=== PATIENT | female | born 1945 | race Two or more races ===

== ENCOUNTER 2017-09-04 11:24 | Emergency (ER) | payer OTHER ==
[~2017-09-04] VITALS: Ht 172.7 cm; Wt 81.2 kg
[~2017-09-04 11:24] MED LIST: AMLO5TAB2; DIPH25CA66 PO; HYDR-4683 PO; INSLANTI SC
[2017-09-04 12:03] LABS: Basophils # (auto) 0.1 uL; Eosinophils # (auto) 0.4 uL; Eosinophils % (auto) 5.7 % (0.0-7.0); Hematocrit 33.6 % (36.0-46.0); Hemoglobin 11.3 g/dL (12.2-16.2); Lymphocytes # (auto) 1.7 uL; Lymphocytes % (auto) 21.5 % (10.0-50.0); Mean Corpuscular Hemoglobin 29.8 pg (28.0-32.0); Mean Corpuscular Hgb Conc. 33.8 g/dL (32.0-36.0); Mean Corpuscular Volume 88.2 fL (80.0-100.0); Monocytes # (auto) 0.7 uL; Monocytes % (auto) 8.6 % (0.0-12.0); Neutrophils # (auto) 4.9 uL; Neutrophils % (auto) 63.2 % (37.0-80.0); Platelet Count (auto) 261 10^3/uL (140-450); Red Blood Cells 3.81 10^6/uL (4.0-5.20); Red Cell Distribution Width 15.3 % (11.8-14.3); White Blood Cell 7.7 10^3/uL (4.4-10.8)
[2017-09-04 12:23] LABS: Albumin 3.9 g/dL (3.4-5.0); Calcium 9.1 mg/dL (8.5-10.1); Potassium 3.9 mmol/L (3.5-5.1)
[2017-09-04 12:38] LABS: BUN/Creatinine Ratio 17.6; Bilirubin, Total 1.1 mg/dL (0.2-1.0); Total Protein 7.5 g/dL (6.4-8.2)
[2017-09-04 12:41] VITALS: BP 126/66
== END 2017-09-04 13:33 | disposition home or self-care (01) ==
LOC: ER 11:26
DX: S09.90XA Unspecified injury of head, initial encounter (principal); R53.1 Weakness; I25.810 Atherosclerosis of coronary artery bypass graft(s) without angina pectoris; E11.9 Type 2 diabetes mellitus without complications; I10 Essential (primary) hypertension; Z88.6 Allergy status to analgesic agent; Z95.1 Presence of aortocoronary bypass graft; Z88.8 Allergy status to other drugs, medicaments and biological substances; Z91.040 Latex allergy status; Z79.899 Other long term (current) drug therapy; Z90.49 Acquired absence of other specified parts of digestive tract; W18.39XA Other fall on same level, initial encounter; Y93.89 Activity, other specified; Y92.89 Other specified places as the place of occurrence of the external cause; Y99.8 Other external cause status
CPT/HCPCS: 36415; 70450; 74176; 80053; 85025; 93005; 94761; 99285; J7030

== ENCOUNTER 2018-01-02 16:20 | Inpatient (IN) | payer OTHER ==
[~2018-01-02] VITALS: Ht 167.6 cm; Wt 78.0 kg
[~2018-01-02 16:20] MED LIST changes: +AMLO5TAB13; -AMLO5TAB2
[2018-01-02] MEDS ORDERED: DEXTROSE 50% SYRINGE 100 ML IV ONE (16:24)
[2018-01-02] MEDS ORDERED: DEXTROSE (50%) 50ML SYRG IV ONE ×2 (17:30→18:00)
[2018-01-02] MEDS: DEXTROSE 10% 1,000 ML IV SCH (17:58)
[2018-01-02] MEDS ORDERED: SODIUM CHLORIDE 0.9% 1,000 ML IVB ONE (19:17)
[2018-01-02 19:37] LABS: Basophils # (auto) 0 uL; Eosinophils # (auto) 0 uL; Lymphocytes # (auto) 1.1 uL; Lymphocytes % (auto) 25.2 % (10.0-50.0); Monocytes # (auto) 0.3 uL; Nucleated Red Blood Cells % 0.1 %; Red Blood Cells 4.32 10^6/uL (4.0-5.20)
[2018-01-02 19:39] LABS: Basophils % (auto) 0.5 % (0.0-2.0); Eosinophils % (auto) 0.7 % (0.0-7.0); Hematocrit 38.9 % (36.0-46.0); Hemoglobin 11.7 g/dL (12.2-16.2); Mean Corpuscular Volume 90.1 fL (80.0-100.0); Monocytes % (auto) 7.7 % (0.0-12.0); Neutrophils # (auto) 2.9 uL; Neutrophils % (auto) 65.9 % (37.0-80.0); Platelet Count (auto) 121 10^3/uL (140-450); Red Cell Distribution Width 17.5 % (11.8-14.3); White Blood Cell 4.4 10^3/uL (4.4-10.8)
[2018-01-02 21:21] LABS: INR 1.18 (0.9-1.15); Partial Thromboplastin Time 34.3 sec (23.78-33.04); Prothrombin Time 12.5 sec (9.27-12.13)
[2018-01-02 21:33] LABS: Alanine Aminotransferase 20 U/L (13-56); Albumin 3.6 g/dL (3.4-5.0); Anion Gap 8 (5-15); Aspartate Aminotransferase 22 U/L (15-37); Blood Urea Nitrogen 23 mg/dL (7-18); Calcium 8.8 mg/dL (8.5-10.1); Carbon Dioxide 20 mmol/L (21-32); Chloride 107 mmol/L (98-107); Glucose 143 mg/dL (74-106); Potassium 4.4 mmol/L (3.5-5.1); Sodium 135 mmol/L (136-145)
[2018-01-02 21:36] LABS: Alkaline Phosphatase 75 U/L (45-117); BUN/Creatinine Ratio 21.1; Bilirubin, Total 0.7 mg/dL (0.2-1.0); GFR African American 63 mL/min; GFR Non-African American 52 mL/min; Total Protein 7.6 g/dL (6.4-8.2)
[2018-01-02] MEDS ORDERED: DEXTROSE (50%) 50ML SYRG IV PRN (22:30)
[2018-01-02] MEDS ORDERED: ONDANSETRON HCL 4 MG/2 ML VIAL IV PRN (22:30)
[2018-01-02] MEDS ORDERED: TEMAZEPAM 15 MG CAP PO PRN (22:30)
[2018-01-02] MEDS ORDERED: ACETAMINOPHEN 325 MG TAB PO ONE (22:45)
[2018-01-02 23:26] VITALS: BP 143/80
[2018-01-02] MEDS: ACCU-CHEK COMFORT CURVE STRIP VI SCH (23:30)
[2018-01-02 23:47] VITALS: BP 143/80
[2018-01-03] MEDS: DEXTROSE 10% 1,000 ML IV SCH (01:36)
[2018-01-03] MEDS ORDERED: HYDR-4683 PO (02:20)
[2018-01-03] MEDS: ACCU-CHEK COMFORT CURVE STRIP VI SCH ×7 (02:30→21:34)
[2018-01-03] MEDS: HYDROcodone-ACET 5/325MG TAB PO PRN ×5 (03:02→21:58)
[2018-01-03 05:18] VITALS: BP 124/63
[2018-01-03] MEDS ORDERED: ACCU-CHEK COMFORT CURVE STRIP VI SCH (06:00)
[2018-01-03] MEDS ORDERED: DEXTROSE (50%) 50ML SYRG IV PRN (06:00)
[2018-01-03] MEDS: InsuLIN REG 1unit/0.01ml Soln (100units/ml) SC SCH ×5 (06:51→21:47)
[2018-01-03 07:19] LABS: Basophils # (auto) 0 uL; Eosinophils # (auto) 0.1 uL; Monocytes # (auto) 0.4 uL; Neutrophils # (auto) 1.8 uL
[2018-01-03 07:22] LABS: Eosinophils % (auto) 1.3 % (0.0-7.0); Hematocrit 39.6 % (36.0-46.0); Hemoglobin 13.3 g/dL (12.2-16.2); Lymphocytes % (auto) 47.2 % (10.0-50.0); Mean Corpuscular Hgb Conc. 33.6 g/dL (32.0-36.0); Mean Corpuscular Volume 80.3 fL (80.0-100.0); Monocytes % (auto) 8.3 % (0.0-12.0); Neutrophils % (auto) 42.2 % (37.0-80.0); Platelet Count (auto) 128 10^3/uL (140-450); Red Blood Cells 4.94 10^6/uL (4.0-5.20); Red Cell Distribution Width 17.1 % (11.8-14.3); White Blood Cell 4.3 10^3/uL (4.4-10.8)
[2018-01-03 07:26] LABS: BUN/Creatinine Ratio 18.4; Calcium 8.3 mg/dL (8.5-10.1); Potassium 4.1 mmol/L (3.5-5.1)
[2018-01-03 08:47] LABS: Alcohol, Urine < 3.0 mg/dL (0-5); Amphetamine Screen, Urine NEGATIVE (NEGATIVE); Barbiturate Scree,Urine NEGATIVE (NEGATIVE); Benzodiazephine Screen, Urine POSITIVE (NEGATIVE); Cannabinoid Screen, Urine NEGATIVE (NEGATIVE); Cocaine Screen, Urine NEGATIVE (NEGATIVE); Opiate Scree,Urine NEGATIVE (NEGATIVE); Phencyclidine Screen, Urine NEGATIVE (NEGATIVE)
[2018-01-03 08:49] LABS: Urine Bacteria FEW /hpf (None Seen); Urine Blood Negative /uL (Negative); Urine Specific Gravity 1.009 (1.001-1.035); Urine WBC <1 /hpf (0 - 5)
[2018-01-03 08:54] VITALS: BP 125/67
[2018-01-03] MEDS: amLODIPine BESYLATE 5 MG TAB PO SCH (09:59)
[2018-01-03 12:59] VITALS: BP 107/57
[2018-01-03 17:00] VITALS: BP 104/48
[2018-01-03] MEDS: SODIUM CHLORIDE 0.9% 1,000 ML IV SCH (17:10)
[2018-01-03] MEDS: INSULIN LANTUS (GLARGINE) 1 /0.01ml (100units/ml) SC SCH (21:48)
[2018-01-03 21:53] VITALS: BP 115/57
[2018-01-04 05:10] VITALS: BP 103/56
[2018-01-04 05:37] LABS: Basophils # (auto) 0 uL; Basophils % (auto) 0.9 % (0.0-2.0); Eosinophils # (auto) 0.1 uL; Eosinophils % (auto) 3.1 % (0.0-7.0); Hematocrit 39.2 % (36.0-46.0); Hemoglobin 13.2 g/dL (12.2-16.2); Lymphocytes # (auto) 2.1 uL; Lymphocytes % (auto) 54.5 % (10.0-50.0); Mean Corpuscular Hemoglobin 27.4 pg (28.0-32.0); Mean Corpuscular Hgb Conc. 33.6 g/dL (32.0-36.0); Mean Corpuscular Volume 81.5 fL (80.0-100.0); Monocytes # (auto) 0.4 uL; Monocytes % (auto) 9.3 % (0.0-12.0); Neutrophils # (auto) 1.3 uL; Neutrophils % (auto) 32.2 % (37.0-80.0); Nucleated Red Blood Cells % 0.3 %; Platelet Count (auto) 119 10^3/uL (140-450); Red Blood Cells 4.81 10^6/uL (4.0-5.20); Red Cell Distribution Width 16.9 % (11.8-14.3); White Blood Cell 3.9 10^3/uL (4.4-10.8)
[2018-01-04 05:50] LABS: Chloride 108 mmol/L (98-107); Potassium 4.7 mmol/L (3.5-5.1); Sodium 141 mmol/L (136-145)
[2018-01-04 06:00] LABS: Anion Gap 6 (5-15); Blood Urea Nitrogen 18 mg/dL (7-18); Calcium 8.8 mg/dL (8.5-10.1); Carbon Dioxide 27 mmol/L (21-32); GFR African American 57 mL/min; GFR Non-African American 47 mL/min; Glucose 105 mg/dL (74-106); Magnesium 2.2 mg/dL (1.6-2.6)
[2018-01-04] MEDS: InsuLIN REG 1unit/0.01ml Soln (100units/ml) SC SCH ×3 (06:04→17:00)
[2018-01-04] MEDS: ACCU-CHEK COMFORT CURVE STRIP VI SCH ×3 (06:04→17:00)
[2018-01-04] MEDS: SODIUM CHLORIDE 0.9% 1,000 ML IV SCH (07:55)
[2018-01-04 09:00] VITALS: BP 125/59
[2018-01-04] MEDS: INSULIN LANTUS (GLARGINE) 1 /0.01ml (100units/ml) SC SCH (10:00)
[2018-01-04] MEDS: amLODIPine BESYLATE 5 MG TAB PO SCH (10:59)
[2018-01-04] MEDS: HYDROcodone-ACET 5/325MG TAB PO PRN ×2 (11:04→17:40)
[2018-01-04 12:36] VITALS: BP 122/57
[2018-01-04] MEDS ORDERED: INSLANTI SC (15:30)
[2018-01-04] MEDS ORDERED: DOCU100C8 PO (15:30)
[2018-01-04 17:00] VITALS: BP 112/61
[2018-01-04] MEDS ORDERED: DOCUSATE SOD 100 MG CAP PO SCH (22:00)
== END 2018-01-04 20:00 | disposition home or self-care (01) | DRG 682 ==
LOC: ER 16:20 → EDUNIT# 16:20 → EDBD 16:20 → OVERFLOW 22:16 → WEST WING 23:39
PROVIDERS: ADMIT Nurse Practitioner Family; ATTEND Internal Medicine
DX: N17.0 Acute kidney failure with tubular necrosis (principal); G93.41 Metabolic encephalopathy; E87.1 Hypo-osmolality and hyponatremia; E11.649 Type 2 diabetes mellitus with hypoglycemia without coma; N18.9 Chronic kidney disease, unspecified; D64.9 Anemia, unspecified; E11.21 Type 2 diabetes mellitus with diabetic nephropathy; T68.XXXA Hypothermia, initial encounter; F41.9 Anxiety disorder, unspecified; E11.22 Type 2 diabetes mellitus with diabetic chronic kidney disease; F32.9 Major depressive disorder, single episode, unspecified; I12.9 Hypertensive chronic kidney disease with stage 1 through stage 4 chronic kidney disease, or unspecified chronic kidney disease; I25.10 Atherosclerotic heart disease of native coronary artery without angina pectoris; Z79.4 Long term (current) use of insulin; Z82.49 Family history of ischemic heart disease and other diseases of the circulatory system; Z95.1 Presence of aortocoronary bypass graft; Z90.49 Acquired absence of other specified parts of digestive tract
CPT/HCPCS: 36415; 51702; 70450; 71045; 80048; 80053; 80307; 81001; 82962; 83036; 83605; 83735; 84484; 85025; 85610; 85730; 87040; 87086; 96374; 96376; 97116; 97163; 97530; 99291; G0378; J1815

== ENCOUNTER 2018-06-20 12:29 | Emergency (ER) | payer OTHER ==
[~2018-06-20] VITALS: Ht 172.7 cm; Wt 81.6 kg
[~2018-06-20 12:29] MED LIST changes: +DOCU100C8 PO
[2018-06-20 12:48] VITALS: BP 168/67
== END 2018-06-20 14:54 | disposition home or self-care (01) ==
LOC: ER 12:29
DX: S30.861A Insect bite (nonvenomous) of abdominal wall, initial encounter (principal); E11.9 Type 2 diabetes mellitus without complications; I10 Essential (primary) hypertension; Z90.49 Acquired absence of other specified parts of digestive tract; Z95.1 Presence of aortocoronary bypass graft; Z88.6 Allergy status to analgesic agent; Z91.041 Radiographic dye allergy status; Z91.038 Other insect allergy status; Z91.040 Latex allergy status; Z79.4 Long term (current) use of insulin; Z79.899 Other long term (current) drug therapy; Y92.9 Unspecified place or not applicable

== ENCOUNTER 2018-11-05 10:23 | Emergency (ER) | payer OTHER ==
[~2018-11-05] VITALS: Ht 172.7 cm; Wt 80.7 kg
[~2018-11-05 10:23] MED LIST changes: -AMLO5TAB13; +AMLO5TAB15; -HYDR-4683 PO; +HYDR-4833 PO
[2018-11-05 10:44] VITALS: BP 119/58
[2018-11-05] MEDS ORDERED: methylPREDNISolone SOD SUCC 125 MG/2 ML VL IM ONE (11:15)
== END 2018-11-05 11:47 | disposition home or self-care (01) ==
LOC: ER 10:23
DX: L25.9 Unspecified contact dermatitis, unspecified cause (principal); E11.9 Type 2 diabetes mellitus without complications; I10 Essential (primary) hypertension; Z90.49 Acquired absence of other specified parts of digestive tract; Z95.1 Presence of aortocoronary bypass graft; Z88.6 Allergy status to analgesic agent; Z91.040 Latex allergy status
CPT/HCPCS: 96372; 99283; J2930

== ENCOUNTER 2018-12-26 05:43 | Inpatient (IN) | payer OTHER ==
[~2018-12-26] VITALS: Ht 175.3 cm; Wt 79.1 kg
[2018-12-26 06:54] LABS: Basophils # (auto) 0.1 uL; Eosinophils # (auto) 0.2 uL; Eosinophils % (auto) 2.8 % (0.0-7.0); Hematocrit 38.4 % (36.0-46.0); Hemoglobin 12.9 g/dL (12.2-16.2); Lymphocytes # (auto) 2.3 uL; Lymphocytes % (auto) 37.5 % (10.0-50.0); Mean Corpuscular Hemoglobin 28.1 pg (28.0-32.0); Mean Corpuscular Hgb Conc. 33.7 g/dL (32.0-36.0); Mean Corpuscular Volume 83.3 fL (80.0-100.0); Monocytes # (auto) 0.9 uL; Monocytes % (auto) 14.5 % (0.0-12.0); Neutrophils # (auto) 2.7 uL; Neutrophils % (auto) 44.2 % (37.0-80.0); Nucleated Red Blood Cells % 0.1 %; Platelet Count (auto) 147 10^3/uL (140-450); Red Blood Cells 4.61 10^6/uL (4.0-5.20); Red Cell Distribution Width 16.2 % (11.8-14.3); White Blood Cell 6.1 10^3/uL (4.4-10.8)
[2018-12-26 07:13] LABS: Albumin 2.4 g/dL (3.4-5.0); BUN/Creatinine Ratio 15.1; Calcium 8.2 mg/dL (8.5-10.1); Potassium 3.7 mmol/L (3.5-5.1)
[2018-12-26 07:20] LABS: Bilirubin, Total 0.5 mg/dL (0.2-1.0); Total Protein 6.4 g/dL (6.4-8.2)
[2018-12-26 07:24] LABS: INR 1.2 (0.9-1.15)
[2018-12-26] MEDS ORDERED: SODIUM CHLORIDE 0.9% 1,000 ML IV ONE ×2 (07:37)
[2018-12-26] MEDS ORDERED: ENOXAPARIN SOD 80 MG/0.8ML SYRINGE SC ONE (07:45)
[2018-12-26] MEDS ORDERED: ACETYLCYSTEINE ORAL for CIN 20%(200MG/ML) 4ML PO ONE (07:45)
[2018-12-26] MEDS ORDERED: diphenhdrAMINE HCL 50 MG/1 ML VL IV ONE (09:00)
[2018-12-26] MEDS ORDERED: IOHEXOL 350 MG/ML 100ML IJ ONE (09:03)
[2018-12-26] MEDS ORDERED: methylPREDNISolone SOD SUCC 125 MG/2 ML VL IV ONE (09:15)
[2018-12-26] MEDS ORDERED: ERTAPENEM SOD INJ 1 GM in SODIUM CHL 0.9% 50 ML IV ONE (11:15)
[2018-12-26 12:34] LABS: Urine WBC None Seen /hpf (0 - 5)
[2018-12-26 12:45] LABS: Urine Bacteria NONE SEEN /hpf (None Seen); Urine Blood Negative /uL (Negative)
[2018-12-26 12:51] LABS: Urine Specific Gravity > 1.050 (1.001-1.035)
[2018-12-26] MEDS: HEPARIN DRIP/D5W 100UNITS/ML 250 ML IV SCH (14:27)
[2018-12-26] MEDS ORDERED: LACTULOSE 20Gm/30ML SOLN PO PRN (14:30)
[2018-12-26] MEDS ORDERED: PROMETHAZINE HCL 25 MG/ML 1ML IV PRN (14:30)
[2018-12-26] MEDS ORDERED: ACETAMINOPHEN 500 MG TAB PO PRN (14:30)
[2018-12-26] MEDS ORDERED: NITROGLYCERIN 0.4 MG SL TAB SL PRN (14:30)
[2018-12-26] MEDS ORDERED: DEXTROSE (50%) 50ML SYRG IV PRN (14:30)
[2018-12-26] MEDS ORDERED: TEMAZEPAM 15 MG CAP PO PRN (14:30)
[2018-12-26] MEDS ORDERED: MEROPENEM 1GM IVPB 100 ML IV ONE (14:45)
[2018-12-26] MEDS ORDERED: HEPARIN SODIUM (PORCINE) 5000 UNITS/ML 1ML VIAL IV ONE (15:30)
[2018-12-26] MEDS ORDERED: HEPARIN SODIUM (PORCINE) 5000 UNITS/ML 1ML VIAL ONE (15:59)
[2018-12-26] MEDS: InsuLIN REG 1unit/0.01ml Soln (100units/ml) SC SCH ×2 (17:00→22:27)
[2018-12-26] MEDS: ACCU-CHEK COMFORT CURVE STRIP VI SCH ×2 (17:00→22:27)
[2018-12-26 17:35] VITALS: BP 108/66
--- NOTE | 2018-12-26 17:35 | NUR ---
Admit to [facility] admitted to [facility] via gurney on child monitor, and portable 02. Patient transferred to bed, connected to unit monitoring and oxygen, and weighed by bed scale. Patient oriented to Chloe Cason, primary RN, unit, room, bed, and unit policies regarding patient care and visiting hours. All questions and concerns addressed, patient verbalized understanding.
--- NOTE | 2018-12-26 19:05 | NUR ---
OPENING SHIFT RECEIVED REPORT FROM DAY SHIFT RN. ASSUMED CARE OF PATIENT. PATIENT IN BED WATCHING TV WITH NO SIGNS OR SYMPTOMS OF SOB, PAIN OR DISTRESS. CURRENTLY ON 3L 02 NASAL CANNULA, 02 SAT - 98%. RIGHT WRIST AND LEFT FOREARM IV - CLEAN/DRY/INTACT. UPDATED PATIENT ON PLAN OF CARE. REPOSITIONED FOR COMFORT. BED IN LOWEST POSITION, SIDE RAILS UPX2, CALL LIGHT WITHIN REACH. WILL CONTINUE TO MONITOR.
[2018-12-26 20:00] VITALS: BP 97/45
--- NOTE | 2018-12-26 23:10 | NUR ---
PTT REDRAW LAB REDRAW DUE TO ABNORMALLY HIGH PTT RESULT. WILL CONTINUE TO MONITOR.
[2018-12-27] VITALS: BP 99/63
--- NOTE | 2018-12-27 00:37 | NUR ---
PTT RESULT PTT - 127.1 - HEPARIN GTT HELD PER PROTOCOL.
[2018-12-27 04:00] VITALS: BP 99/62
[2018-12-27] MEDS: InsuLIN REG 1unit/0.01ml Soln (100units/ml) SC SCH ×4 (06:48→22:24)
[2018-12-27] MEDS: ACCU-CHEK COMFORT CURVE STRIP VI SCH ×4 (06:48→22:24)
--- NOTE | 2018-12-27 07:10 | NUR ---
END OF SHIFT REPORT GIVEN TO DAY SHIFT RN. CARE ENDORSED.
--- NOTE | 2018-12-27 07:30 | NUR ---
RECEIVED PATIENT SITTING UP IN THE BED, A/O TIMES 4, O2 BY N/C AT 3L, USES THE BEDPAN, HEPARIN INFUSING INTO THE LFA AT 11.40ML/HR BY THE IV PUMP AND NS AT TKO TO THE RT WRIST BY THE IV PUMP, DENIES PAIN AT THIS TIME,
[2018-12-27 08:00] VITALS: BP 105/61
--- NOTE | 2018-12-27 08:00 | NUR ---
USES THE BEDPAN AT THIS TIME
--- NOTE | 2018-12-27 08:30 | NUR ---
SAT UP IN BED AND ATE HER BREAKFAST NO PROBLEMS WITH SWALLOWING
[2018-12-27 08:32] LABS: INR 1.1 (0.9-1.15)
[2018-12-27 08:35] LABS: Partial Thromboplastin Time 107.1 sec (23.64-32.05)
--- NOTE | 2018-12-27 08:45 | NUR ---
PTT 107.1 PER PROTOCOL HEPARIN STOPPED FOR I HOUR AND DECREASE HEPARIN BY 3 UNITS WHEN RESTARTED
--- NOTE | 2018-12-27 09:20 | NUR ---
ADEEL SSN/[employer]MENT OPERATOR IN TO SEE THE PATIENT FOR DR DUMAS
[2018-12-27] MEDS: HEPARIN DRIP/D5W 100UNITS/ML 250 ML IV SCH (09:45)
--- NOTE | 2018-12-27 09:45 | NUR ---
HEPARIN RESTARTED AT 8.4ML/HR, WILL ORDER PTT FOR 1545 TODAY
[2018-12-27] MEDS: PANTOPRAZOLE 40 MG TAB PO SCH (09:57)
--- NOTE | 2018-12-27 09:57 | NUR ---
DISCUSSED MEDICATIONS WITH THE PATIENT REGARDING THE DOSAGE, USAGE, AND THE SIDE EFFECTS, VERBALIZED THAT SHE UNDERSTOOD AND MEDS TAKEN ORDERED
--- NOTE | 2018-12-27 11:16 | NUR ---
dr vasquez in to see the patient
--- NOTE | 2018-12-27 11:50 | NUR ---
BS 284 WILL GIVE 6 UNITS OF REGULAR INSULIN
[2018-12-27 12:00] VITALS: BP 100/55
--- NOTE | 2018-12-27 12:11 | NUR ---
TALK TO HER DAUGHTER ON THE PHONE
--- NOTE | 2018-12-27 12:51 | NUR ---
PATIENT SITTING UP IN THE BED EATING HER LUNCH, DAUGHTER INTO VISIT
--- NOTE | 2018-12-27 13:45 | NUR ---
patient had a bm in the bedpan
--- NOTE | 2018-12-27 14:25 | NUR ---
dr orr in to see the patient and stated not to put the scd's on the patient
--- NOTE | 2018-12-27 15:13 | NUR ---
daughter at the bedside no complaints from the patient
--- NOTE | 2018-12-27 15:56 | NUR ---
midline being inserted into the rodney
[2018-12-27 16:00] VITALS: BP 112/64
--- NOTE | 2018-12-27 16:20 | NUR ---
Midline Placement: Patient educated on need for midline placement. All risks and benefits explained and all questions and concerns addresses prior to procedure. 18g/10cm midline inserted via left brachial vein using Ultrasound. Sterile technique utilized. Blood return obtained from lumen and flushed easily with NS using proper technique. Midline secured with saline lock; biodisc and occlusive dressing applied. Primary RN notified. Midline lot #[id number]
--- NOTE | 2018-12-27 17:03 | NUR ---
calling lab to come and draw the ptt for the patient
--- NOTE | 2018-12-27 17:16 | NUR ---
gotten up to the bathroom with minimal help by pt
[2018-12-27] MEDS: traMADol HCL 50 MG TAB PO PRN (17:45)
--- NOTE | 2018-12-27 17:45 | NUR ---
MEDICATED WITH ULTRAM FOR PAIN TO THE LEGS
[2018-12-27 18:20] LABS: INR 1.06 (0.9-1.15)
--- NOTE | 2018-12-27 18:22 | NUR ---
SITTING UP IN THE BED EATING HER DINNER, O2 BY N/C AT 3L, STOPPED THE HEPARIN DRIP FOR 1 HOUR AND WILL DECREASE THE RATE BY 300 UNITS WHEN IT IS RESTARTED, ABLE TO GET UP TO THE BR,SALINE LOCK TO THE LFA 20G AND THE RT WRIST 29G BOTH FLUSHED AND PATENT, NO COMPLAINTS AT TIME, TWYLA MIDLINE FLUSHED AND PATENT, WILL CONTINUE TO MONITOR AND GIVE REPORT TO THE NEXT SHIFT
--- NOTE | 2018-12-27 19:15 | NUR ---
OPENING SHIFT REPORT RECEIVED FROM DAY SHIFT RN. ASSUMED CARE OF PATIENT. PATIENT IN BED RESTING WITH NO SIGNS OR SYMPTOMS OF SOB, PAIN OR DISTRESS. CURRENTLY ON 3L 02 NASAL CANNULA, 02 SAT - 100%. REPOSITIONED FOR COMFORT. LEFT UPPER ARM MIDLINE, RIGHT WRIST AND LEFT FOREARM IV - CLEAN/DRY/INTACT. REPOSITIONED FOR COMFORT. BED IN LOWEST POSITION, SIDE RAILS UP X2, CALL LIGHT WITHIN REACH. WILL CONTINUE TO MONITOR.
--- NOTE | 2018-12-27 19:30 | NUR ---
HEPARIN HEPARIN GTT RESTARTED AT 5.4ML PER HEPARIN PROTOCOL. WILL CONTINUE TO MONITOR.
[2018-12-27 20:00] VITALS: BP 91/62
[2018-12-27] MEDS: MEROPENEM 1GM IVPB 100 ML IV SCH (22:09)
[2018-12-28] VITALS: BP 100/64
[2018-12-28] MEDS: HEPARIN DRIP/D5W 100UNITS/ML 250 ML IV SCH (00:57)
[2018-12-28 01:21] LABS: INR 1.04 (0.9-1.15); Partial Thromboplastin Time 45.4 sec (23.64-32.05)
--- NOTE | 2018-12-28 01:30 | NUR ---
PTT LAB RESULTS - 45.4, TITRATED HEPARIN GTT TO 7.4ML/HR PER HEPARIN PROTOCOL. WILL CONTINUE TO MONITOR.
[2018-12-28 04:00] VITALS: BP 94/61
[2018-12-28 06:13] LABS: Basophils # (auto) 0 uL; Basophils % (auto) 0.7 % (0.0-2.0); Eosinophils # (auto) 0.1 uL; Eosinophils % (auto) 2.5 % (0.0-7.0); Hematocrit 31.4 % (36.0-46.0); Hemoglobin 10.5 g/dL (12.2-16.2); Lymphocytes # (auto) 2.3 uL; Lymphocytes % (auto) 41.8 % (10.0-50.0); Mean Corpuscular Hemoglobin 28.2 pg (28.0-32.0); Mean Corpuscular Hgb Conc. 33.3 g/dL (32.0-36.0); Mean Corpuscular Volume 84.5 fL (80.0-100.0); Monocytes # (auto) 0.5 uL; Monocytes % (auto) 9.1 % (0.0-12.0); Neutrophils # (auto) 2.6 uL; Neutrophils % (auto) 45.9 % (37.0-80.0); Nucleated Red Blood Cells % 0.2 %; Platelet Count (auto) 134 10^3/uL (140-450); Red Blood Cells 3.72 10^6/uL (4.0-5.20); Red Cell Distribution Width 15.9 % (11.8-14.3); White Blood Cell 5.6 10^3/uL (4.4-10.8)
[2018-12-28] MEDS: InsuLIN REG 1unit/0.01ml Soln (100units/ml) SC SCH ×4 (06:35→21:58)
[2018-12-28] MEDS: ACCU-CHEK COMFORT CURVE STRIP VI SCH ×4 (06:35→21:59)
[2018-12-28 06:42] LABS: BUN/Creatinine Ratio 16.2; Calcium 7.8 mg/dL (8.5-10.1); Magnesium 1.8 mg/dL (1.6-2.6); Potassium 3.8 mmol/L (3.5-5.1); Total Protein 5.1 g/dL (6.4-8.2)
[2018-12-28 06:45] LABS: Bilirubin, Total 0.3 mg/dL (0.2-1.0)
--- NOTE | 2018-12-28 07:10 | NUR ---
END OF SHIFT REPORT GIVEN TO DAY SHIFT RN. CARE ENDORSED.
[2018-12-28 08:00] VITALS: BP 94/51
--- NOTE | 2018-12-28 08:00 | NUR ---
SBAR REPORT RECEIVED FROM [facility] SHIFT RN MARQUITA. AM ASSESSMENT PERFORMED AT THIS TIME WITH 0 COMPLICATIONS NOTED. SEE FLOWSHEET FOR MORE DETAILS. VSS.
[2018-12-28 08:10] LABS: INR 1.06 (0.9-1.15); Partial Thromboplastin Time 49.7 sec (23.64-32.05)
[2018-12-28] MEDS: traMADol HCL 50 MG TAB PO PRN (08:12)
--- NOTE | 2018-12-28 08:30 | NUR ---
SPOKE WITH PHARMACY REGARDING PT'S PTT LEVEL OF 49.7. PER PHARMACIST'S RECOMMENDATION, DO NOT BOLUS OR TITRATE HEPARIN GTT PER PROTOCOL (WE ARE TREATING THIS PTT BY ROUNDING IT UP TO 50 DUE TO PT HAVING DIFFICULTIES ADJUSTING TO NEW THERAPEUTIC HEPARIN DOSE) AND WILL FOLLOW UP ACCORDINGLY AT 13:00 FOR ANY CHANGES. HEPARIN GTT REMAINED THE SAME PER PHARMACIST'S RECOMMENDATION VSS.
[2018-12-28] MEDS: PANTOPRAZOLE 40 MG TAB PO SCH (09:50)
[2018-12-28] MEDS: MEROPENEM 1GM IVPB 100 ML IV SCH ×2 (09:50→21:54)
[2018-12-28] MEDS: MORPHINE SULF INJ 2 MG/ML SYRINGE 1ML IV PRN ×2 (09:52→16:17)
[2018-12-28 12:00] VITALS: BP 98/50
--- NOTE | 2018-12-28 14:20 | NUR ---
MD CHEN AT BEDSIDE. UPDATED MD ON PT OVERALL STATUS. NEW ORDERS GIVEN AND IMPLEMENTED, VSS.
--- NOTE | 2018-12-28 15:54 | NUR ---
PT'S FAMILY AT BEDSIDE. EDUCATED FAMILY WITH POC. NO FURTHER QUESTIONS AT THIS TIME, VSS.
[2018-12-28 15:55] VITALS: BP 87/52
--- NOTE | 2018-12-28 16:17 | NUR ---
Assessment Pt is a 73 yr old alert and oriented female. Pt lives with daughter in her home. Pt granddaughter is her caregiver. Pt stated that she currently uses a walker to ambulate and that she will need a shower chair and possible home 02 upon d/c. Prior to admit, pt was independent with ADLs. Pt stated that she would benefit from meals on wheels, SW gave pt meels on wheels info in [place]. Pts income stable through SS and widows pension. Pt has no interest in advance directives presently. Pt daughter can transport upon d/c. Further needs will be assessed closer to d/c. Addendum: 12/28/18 at 1617 by ALEXANDRA ROA Amended: Links added.
--- NOTE | 2018-12-28 16:28 | NUR ---
PT C/O GENERALIZED PAIN TO LOWER EXTREMITIES 09/15. ADMINISTERED PAIN MEDICATION ORDERED. WILL CONTINUE TO FOLLOW UP. VSS.
[2018-12-28] MEDS ORDERED: WARFARIN SODIUM 10 MG TAB PO ONE (17:00)
--- NOTE | 2018-12-28 18:20 | NUR ---
SBAR REPORT GIVEN TO MARICRUZ HANEY RN FOR CONTINUITY OF CARE. NO CHANGES NOTED SEE FLOWSHEET). PT VSS. PT TRANSFERRED VIA WHEELCHAIR WITH 0 COMPLICATIONS NOTED TO ROOM 245B, VSS.
--- NOTE | 2018-12-28 18:36 | NUR ---
Patient received from [facility] via wheelchair. Patient in bed, eating dinner, bed in locked and lowest position and call light within reach. Vital signs as follows: 96/58, 83 bpm, 98.3, 100% on 3L NC, 18 RR. Patient restarted on Heparin at 7.4 ml/hr. No signs or complaints of discomfort. Will continue to monitor.
--- NOTE | 2018-12-28 19:00 | NUR ---
OPENING NOTE Received report from day shift RN. Patient is A&O X's 4 with no s/s of distress. Patient reports no SOB or discomfort. Respirations are even and unlabored. Patient reports some minor pain to her left foot. Educated patient to use call light when in need of assistance and before ambulating. Patient verbalized understanding. Patient is currently receiving Heparin, infusing at 7.4 ml/hr via left upper arm midline and O2 at 2L. Bed is in lowest/locked position with side rails up X's 2 and call light is within reach of patient. Will continue care and round hourly/PRN.
[2018-12-28 19:17] LABS: INR 1.03 (0.9-1.15); Partial Thromboplastin Time 60.4 sec (23.64-32.05)
--- NOTE | 2018-12-28 19:39 | NUR ---
MD BEJARANO AT BEDSIDE discussed POC with patient. Orders were given and implemented.
--- NOTE | 2018-12-28 20:45 | NUR ---
CALLED PHARMACY Called pharmacy to ensure that the current Heparin drip of 7.4ml/hr is correct and that no change should be done. Current labs are PT 11.1 INR 1.03 PTT 60.4 PER PHARMACY, CURRENT RATE OF 7.4 IS CORRECT AND NO CHANGE IS NEEDED.
[2018-12-28 23:04] VITALS: BP 93/59
--- NOTE | 2018-12-29 00:43 | NUR ---
ROUNDS Patient c/o feeling a little more short of breath at this time. No distress noted. Respirations are clear/even and unlabored. RR at 16 and O2 saturation is 98% with 2L O2 via N.C. Increased patient's O2 to 3L and HOB. Patient reported feeling much more comfortable. Will continue to monitor.
[2018-12-29 01:08] LABS: INR 1.05 (0.9-1.15); Partial Thromboplastin Time 47.3 sec (23.64-32.05)
--- NOTE | 2018-12-29 01:21 | NUR ---
HEPARIN RATE ADJUSTED 0020 PTT RESULTS: 47.3 PER PHARMACY PROTOCOL, HEPARIN WAS INCREASED BY 200UNIT/HR= 2ML/HR HEPARIN NOW INFUSING AT 9.4 ML/HR CALLED LAB AND REQUESTED TO CHANGE THE NEXT APTT IN 6 HOURS PER PHARMACY PROTOCOL SINCE DOSE ADJUSTMENT WAS NECESSARY.
[2018-12-29] MEDS: HEPARIN DRIP/D5W 100UNITS/ML 250 ML IV SCH (02:48)
--- NOTE | 2018-12-29 05:34 | NUR ---
PATIENT AMBULATED Patient able to ambulate to bathroom and back into bed with steady gait and standby assistance. Patient has a dry cough when she gets up to ambulate and experiences some SOB with ambulation. Will continue to monitor patient.
[2018-12-29 06:00] VITALS: BP 90/43
[2018-12-29] MEDS: InsuLIN REG 1unit/0.01ml Soln (100units/ml) SC SCH ×4 (06:42→21:42)
[2018-12-29] MEDS: ACCU-CHEK COMFORT CURVE STRIP VI SCH ×4 (06:42→21:42)
--- NOTE | 2018-12-29 07:25 | NUR ---
Opening Shift Note Assumed care of patient, patient sleeping in bed. No S/S of distress/SOB or pain. Bed in lowest position, call light within reach and side rails up x 2. Will continue to monitor for changes Q1hr and PRN.
[2018-12-29 07:38] LABS: Basophils # (auto) 0 uL; Basophils % (auto) 0.7 % (0.0-2.0); Eosinophils # (auto) 0.1 uL; Eosinophils % (auto) 3.4 % (0.0-7.0); Hematocrit 31.4 % (36.0-46.0); Hemoglobin 10.6 g/dL (12.2-16.2); Lymphocytes # (auto) 1.4 uL; Lymphocytes % (auto) 32.5 % (10.0-50.0); Mean Corpuscular Hemoglobin 28.6 pg (28.0-32.0); Mean Corpuscular Hgb Conc. 33.8 g/dL (32.0-36.0); Mean Corpuscular Volume 84.4 fL (80.0-100.0); Monocytes # (auto) 0.4 uL; Neutrophils # (auto) 2.3 uL; Neutrophils % (auto) 54.4 % (37.0-80.0); Nucleated Red Blood Cells % 0.2 %; Platelet Count (auto) 128 10^3/uL (140-450); Red Blood Cells 3.72 10^6/uL (4.0-5.20); Red Cell Distribution Width 16.3 % (11.8-14.3); White Blood Cell 4.2 10^3/uL (4.4-10.8)
[2018-12-29 07:52] LABS: INR 1.09 (0.9-1.15); Partial Thromboplastin Time 66.6 sec (23.64-32.05)
[2018-12-29 09:00] VITALS: BP 90/43
[2018-12-29 09:13] LABS: BUN/Creatinine Ratio 13.9; Calcium 7.9 mg/dL (8.5-10.1); Magnesium 1.8 mg/dL (1.6-2.6); Potassium 4.1 mmol/L (3.5-5.1)
[2018-12-29] MEDS: MEROPENEM 1GM IVPB 100 ML IV SCH ×2 (10:02→21:42)
[2018-12-29] MEDS: PANTOPRAZOLE 40 MG TAB PO SCH (10:02)
--- NOTE | 2018-12-29 12:45 | NUR ---
NUTRITION ASSESSMENT NOTES Please refer to link notes of nutrition screen form filed under the intervention section of the plan of care for further details. Est. Needs: 1650 kcal to 2050 kcal (20-25 kcal/kgBW), 82 gms to 98 gms pro (1.0-1.2 gms/kgBW). Will continue to monitor pertinent labs and reassess nutrient need prn Thank you. Addendum: 12/29/18 at [address] Amended: Links added.
[2018-12-29 13:00] VITALS: BP 108/46
[2018-12-29 13:35] LABS: INR 1.11 (0.9-1.15); Partial Thromboplastin Time 65.5 sec (23.64-32.05)
[2018-12-29 17:00] VITALS: BP 92/50
[2018-12-29] MEDS ORDERED: WARFARIN SODIUM 10 MG TAB PO ONE (17:00)
--- NOTE | 2018-12-29 19:15 | NUR ---
Opening Shift Note Received report from day shift nurse. Assumed care of patient. Pt is awake, alert and orientated x 4 with No S/S of distress/SOB or pain. Family is at bedside. Bed is in lowest position and side rails up x 2. Bed brakes locked and HOB 30 degrees. Instructed on POC and to call for assist PRN, will continue to monitor for changes Q1hr and PRN.
--- NOTE | 2018-12-29 19:38 | NUR ---
aPtt aPTT 68.8. no change on heparin drip. 940units/ hr.
[2018-12-29 19:45] LABS: INR 1.11 (0.9-1.15); Partial Thromboplastin Time 68.8 sec (23.64-32.05)
[2018-12-29] MEDS: traMADol HCL 50 MG TAB PO PRN (20:12)
[2018-12-29 22:00] VITALS: BP 110/51
[2018-12-30] MEDS: traMADol HCL 50 MG TAB PO PRN ×3 (03:54→21:28)
[2018-12-30] MEDS: HEPARIN DRIP/D5W 100UNITS/ML 250 ML IV SCH ×3 (04:42→21:57)
[2018-12-30 05:33] VITALS: BP 104/56
[2018-12-30] MEDS: ACCU-CHEK COMFORT CURVE STRIP VI SCH ×4 (06:16→21:41)
[2018-12-30] MEDS: InsuLIN REG 1unit/0.01ml Soln (100units/ml) SC SCH ×4 (06:38→21:42)
--- NOTE | 2018-12-30 07:14 | NUR ---
CLOSING NOTES ENDORSED CARE TO DAY SHIFT NURSEMARIA TERESA.
[2018-12-30 07:22] LABS: Basophils # (auto) 0 uL; Basophils % (auto) 0.8 % (0.0-2.0); Eosinophils # (auto) 0.1 uL; Hematocrit 32.9 % (36.0-46.0); Hemoglobin 10.8 g/dL (12.2-16.2); Lymphocytes # (auto) 1.1 uL; Lymphocytes % (auto) 34.7 % (10.0-50.0); Mean Corpuscular Hemoglobin 27.9 pg (28.0-32.0); Mean Corpuscular Hgb Conc. 32.8 g/dL (32.0-36.0); Mean Corpuscular Volume 85.1 fL (80.0-100.0); Monocytes # (auto) 0.3 uL; Monocytes % (auto) 10.1 % (0.0-12.0); Neutrophils # (auto) 1.6 uL; Neutrophils % (auto) 51.4 % (37.0-80.0); Nucleated Red Blood Cells % 0.1 %; Platelet Count (auto) 127 10^3/uL (140-450); Red Blood Cells 3.87 10^6/uL (4.0-5.20); Red Cell Distribution Width 16.2 % (11.8-14.3); White Blood Cell 3.1 10^3/uL (4.4-10.8)
[2018-12-30 07:38] VITALS: BP 95/49
[2018-12-30 07:41] LABS: BUN/Creatinine Ratio 11.9; Calcium 7.9 mg/dL (8.5-10.1); Magnesium 1.8 mg/dL (1.6-2.6); Potassium 4.1 mmol/L (3.5-5.1)
[2018-12-30 07:44] LABS: INR 1.27 (0.9-1.15)
--- NOTE | 2018-12-30 07:50 | NUR ---
aPtt Yasmin from lab called re:patient aPTT 70.9. Per protocol no change on heparin drip. Heparin drip infusing at 940units/ hr.
[2018-12-30 07:51] LABS: Partial Thromboplastin Time 70.9 sec (23.64-32.05)
--- NOTE | 2018-12-30 08:00 | NUR ---
Opening Shift Note Assumed care of patient. Pt is awake, alert and orientated x 4 with No S/S of distress/SOB or pain. Bed is in lowest position and side rails up x 2. Bed brakes locked and HOB 30 degrees. Instructed on POC and to call for assist PRN with call light within reach. Will continue to monitor for changes Q1hr and PRN.
[2018-12-30] MEDS: PANTOPRAZOLE 40 MG TAB PO SCH (09:59)
[2018-12-30] MEDS: MEROPENEM 1GM IVPB 100 ML IV SCH ×2 (13:49→21:28)
[2018-12-30 15:04] VITALS: BP 102/72
[2018-12-30 16:38] VITALS: BP 90/54
[2018-12-30] MEDS ORDERED: WARFARIN SODIUM 10 MG TAB PO ONE (17:00)
--- NOTE | 2018-12-30 20:00 | NUR ---
Opening Shift Note Assumed care of patient, awake and alert, oriented x 4, follows direction, clear speech. On oxygen at 4L via Nc with even and unlabored respirations, no S/S of distress or SOB. Patient turns independently in bed and ambulates with steady gait. Midline to left upper arm intact and patent infusing Heparin drip at 9.4ml/hr. Left forearm 20g intact and patent. IV to right wrist leaking, IV DC'd with clean sterile technique, catheter fully intact. Pressure dressing applied to site. Patient tolerated well. Bed low locked position with side rials up x 2 and call light within reach. Instructed on POC and to call for assist PRN, will continue to monitor for changes Q1hr and PRN.
[2018-12-30 22:00] VITALS: BP 95/59
[2018-12-31 05:00] VITALS: BP 88/44
[2018-12-31 05:55] LABS: INR 1.93 (0.9-1.15)
[2018-12-31 06:02] LABS: Partial Thromboplastin Time 91.8 sec (23.64-32.05)
--- NOTE | 2018-12-31 06:03 | NUR ---
Critical aPTT 91.8 per protocol, hold infusion for 1 hr then decrease by rate by 3mL/hr. Infusion held, secondary RN Zee at bedside to verify.
[2018-12-31] MEDS: ACCU-CHEK COMFORT CURVE STRIP VI SCH ×4 (06:09→22:02)
[2018-12-31] MEDS: MEROPENEM 1GM IVPB 100 ML IV SCH ×3 (06:10→22:02)
[2018-12-31] MEDS: InsuLIN REG 1unit/0.01ml Soln (100units/ml) SC SCH ×4 (06:12→22:08)
--- NOTE | 2018-12-31 06:20 | NUR ---
Isela Mendoza MD RE: critical aPTT and low BP BP 88/44 HR 70 asymptomatic. Patient was placed in trendelenburg, reassessment BP 87/46 HR 67. Patient remains asymptomatic, Awaiting call back. Will continue care.
--- NOTE | 2018-12-31 07:05 | NUR ---
Heparin Drip decreased rate by 3mL/hr. current rate at now at 6.4ml/hr
--- NOTE | 2018-12-31 07:06 | NUR ---
Closing Note patient resting in bed with oxygen on at 4L via NC with even and unlabored respirations, no s/s of distress. Heparin infusing at 6.4ml/hr. Bed low locked position with side rails up x 2 and call light within reach. Endorsed care to day shift RN.
--- NOTE | 2018-12-31 08:15 | NUR ---
Opening Shift Note Assumed care of patient. Pt is awake, alert and orientated x 4 with No S/S of distress/SOB or pain. Bed is in lowest position and side rails up x 2. Bed brakes locked and HOB 30 degrees. Instructed on POC and to call for assist PRN with call light within reach. Patient receiving Heparin drip, infusing at 6.4ml/hr. Will continue to monitor for changes Q1hr and PRN.
--- NOTE | 2018-12-31 08:40 | NUR ---
MD ROUNDS DR CRUZ AT BEDSIDE DISCUSSING POC WITH PATIENT. ALL QUESTIONS/CONCERNS ANSWERED. NEW ORDERS RECEIVED/CARRIED OUT. WILL CONTINUE TO MONITOR
[2018-12-31 08:56] VITALS: BP 103/52
[2018-12-31 09:00] VITALS: BP 106/52
[2018-12-31] MEDS: PANTOPRAZOLE 40 MG TAB PO SCH (09:44)
[2018-12-31 13:05] VITALS: BP 106/54
[2018-12-31] MEDS: HEPARIN DRIP/D5W 100UNITS/ML 250 ML IV SCH (13:33)
[2018-12-31 15:03] LABS: INR 1.94 (0.9-1.15); Partial Thromboplastin Time 46.7 sec (23.64-32.05)
--- NOTE | 2018-12-31 15:30 | NUR ---
MD ROUNDS DR CHEN AT BEDSIDE DISCUSSING POC WITH PATIENT. ALL QUESTIONS/CONCERNS ANSWERED. NEW ORDERS RECEIVED/CARRIED OUT. WILL CONTINUE TO MONITOR
[2018-12-31 17:00] VITALS: BP 94/51
[2018-12-31] MEDS ORDERED: WARFARIN SODIUM 5 MG TAB PO ONE (17:00)
--- NOTE | 2018-12-31 17:43 | NUR ---
IV removal IV DC'd with clean sterile technique, catheter fully intact. Pressure dressing applied to site. Patient tolerated well.
--- NOTE | 2018-12-31 19:30 | NUR ---
Opening Shift Note Assumed care of patient, awake and alert x4. Patient denies pain at this time. No S/S of distress noted at this time. Instructed on plan of care and to call for assistance as needed, patient verbalized understanding. Bed is locked in lowest position, side rails x 2 are up, and call light is within reach.
[2018-12-31 22:00] VITALS: BP 113/63
[2019-01-01 05:00] VITALS: BP 100/53
[2019-01-01] MEDS: MEROPENEM 1GM IVPB 100 ML IV SCH ×3 (05:22→21:54)
[2019-01-01] MEDS: traMADol HCL 50 MG TAB PO PRN ×2 (05:22→22:04)
[2019-01-01] MEDS: InsuLIN REG 1unit/0.01ml Soln (100units/ml) SC SCH ×4 (06:13→22:05)
[2019-01-01] MEDS: ACCU-CHEK COMFORT CURVE STRIP VI SCH ×4 (06:13→22:00)
[2019-01-01 06:58] LABS: INR 2.13 (0.9-1.15); Partial Thromboplastin Time 37.3 sec (23.64-32.05)
--- NOTE | 2019-01-01 07:30 | NUR ---
Open Shift Note Received report on patient, awake and sitting up in bed. Patient shows no signs of distress at this time. Discussed POC with patient. Bed in lowest locked position, side rails up x2 and call light within reach. Will continue to monitor.
[2019-01-01 08:33] VITALS: BP 101/53
[2019-01-01] MEDS: PANTOPRAZOLE 40 MG TAB PO SCH (10:16)
[2019-01-01 12:03] LABS: INR 2.01 (0.9-1.15); Partial Thromboplastin Time 36.4 sec (23.64-32.05)
--- NOTE | 2019-01-01 12:46 | NUR ---
Nutrition Follow-up Notes Wt.: 81.4 kg as of yesterday. Pt's on oxygen via nasal cannula, asleep, no immediate family member at bedside during rounds this morning. Pt's no signs of distress noted earlier, currently on Consistent Carb Fat diet with adequate PO intake aeb 85% ave. consumed meals (x6) in last 2.5 days. Est. Needs: 1650 kcal to 2050 kcal (20-25 kcal/kgBW), 82 gms to 98 gms pro (1.0-1.2 gms/kgBW). Will continue to monitor pertinent labs and reassess nutrient need prn Labs: No new labs except for POC Gluc 180 H; 12/30/18 Gluc 293 H, Ca 7.9 H; HbA1c >14.0, Tpro 5.1 L, Alb 2.0 L Skin: Shahab scale 19, low risk, skin intact per parking officer. GI: Pt had 1 BM this morning per parking officer. PES: Altered nutrition related lab values r/t current/chronic medical condition aeb hyperglycemia, elev. Cr, HbA1c, hypocalcemia and severe hypoalbuminemia Will continue to monitor PO intake, skin status, pertinent labs and weight trend. F/u in 3 to 5 days. Rec.: 1.) Consider Consistent Standard Carb: 60 gms/meal, Cardiac: 2 gms Na, Low Chol, Low Fat diet. 2.) Continue close supervision during meals. 3.) If Albumin continues trending down, consider Prostat 1 pkt BID. 4.) Refer pt to CDE/RD for further nutrition education and weight monitoring upon discharge. 5.) Continue current plan of care.
[2019-01-01 12:49] VITALS: BP 107/69
[2019-01-01 16:31] VITALS: BP 92/49
[2019-01-01] MEDS ORDERED: WARFARIN SODIUM 2 MG TAB PO ONE (17:00)
--- NOTE | 2019-01-01 18:19 | NUR ---
Reassessed Blood Pressure Patient's 1700 BP was 92/49 with a heart rate of 71. Rechecked patient's blood pressure, now 106/54 with a heart rate of 70. Patient shows no signs of distress at this time. Will continue to monitor.
--- NOTE | 2019-01-01 19:12 | NUR ---
Closing Note Patient sitting up in bed, shows no signs of distress at this time. Bed in lowest locked position, side rails up x2 and call light within reach. Family present at bedside. Care endorsed to [facility] nurse Alaniz.
--- NOTE | 2019-01-01 19:35 | NUR ---
Opening Shift Note Assumed care of patient, awake and alert. No S/S of distress/SOB or pain noted. Bed is in lowest locked position with bed rails up x2 and call light is within reach of the patient. Instructed on POC and to call for assist PRN.
[2019-01-01 22:00] VITALS: BP 94/53
[2019-01-02 05:00] VITALS: BP 94/50
[2019-01-02 06:11] LABS: INR 2.07 (0.9-1.15); Partial Thromboplastin Time 34.3 sec (23.64-32.05)
[2019-01-02] MEDS: MEROPENEM 1GM IVPB 100 ML IV SCH ×3 (06:34→21:45)
[2019-01-02] MEDS: ACCU-CHEK COMFORT CURVE STRIP VI SCH ×4 (06:36→21:48)
[2019-01-02] MEDS: InsuLIN REG 1unit/0.01ml Soln (100units/ml) SC SCH ×4 (06:37→21:48)
[2019-01-02] MEDS: traMADol HCL 50 MG TAB PO PRN ×2 (06:40→21:46)
--- NOTE | 2019-01-02 07:20 | NUR ---
Open Shift Note Received report on patient, awake and lying in bed. Patient shows no signs of distress at this time. Patient's nasal cannula was to the side of her face. Educated patient importance of keeping oxygen on when needed, patient verbalized understanding but stated "I'm ok right now". Discussed POC and plans for discharge tomorrow. Bed in lowest locked position, side rails up x2 and call light within reach. Will continue to monitor.
[2019-01-02 09:16] VITALS: BP 98/53
[2019-01-02] MEDS: PANTOPRAZOLE 40 MG TAB PO SCH (09:50)
[2019-01-02 12:55] VITALS: BP 91/52
[2019-01-02 16:41] VITALS: BP 98/45
[2019-01-02] MEDS ORDERED: WARFARIN SODIUM 2.5 MG TAB PO ONE (17:00)
--- NOTE | 2019-01-02 19:30 | NUR ---
Opening Shift Note Assumed care of patient, awake and alert, oriented x4 and on nasal cannula 2 1/5 liters. No S/S of distress/SOB or pain noted. Bed is in lowest locked position with bed rails up x2 and call light is within reach of the patient. Instructed on POC and to call for assist PRN.
[2019-01-02 21:52] VITALS: BP 98/54
[2019-01-03 05:08] VITALS: BP 108/63
[2019-01-03] MEDS: traMADol HCL 50 MG TAB PO PRN (05:49)
[2019-01-03] MEDS: MEROPENEM 1GM IVPB 100 ML IV SCH ×2 (05:50→13:46)
[2019-01-03] MEDS: ACCU-CHEK COMFORT CURVE STRIP VI SCH ×3 (06:28→18:02)
[2019-01-03] MEDS: InsuLIN REG 1unit/0.01ml Soln (100units/ml) SC SCH ×3 (06:29→18:02)
[2019-01-03 06:56] LABS: Basophils # (auto) 0.1 uL; Basophils % (auto) 2.4 % (0.0-2.0); Eosinophils # (auto) 0.1 uL; Eosinophils % (auto) 5.2 % (0.0-7.0); Hematocrit 34.2 % (36.0-46.0); Hemoglobin 10.9 g/dL (12.2-16.2); Lymphocytes # (auto) 1.1 uL; Lymphocytes % (auto) 50.6 % (10.0-50.0); Mean Corpuscular Hemoglobin 27.8 pg (28.0-32.0); Mean Corpuscular Hgb Conc. 31.9 g/dL (32.0-36.0); Monocytes # (auto) 0.3 uL; Monocytes % (auto) 13.9 % (0.0-12.0); Neutrophils # (auto) 0.6 uL; Neutrophils % (auto) 27.9 % (37.0-80.0); Nucleated Red Blood Cells % 0.2 %; Platelet Count (auto) 140 10^3/uL (140-450); Red Blood Cells 3.93 10^6/uL (4.0-5.20); White Blood Cell 2.2 10^3/uL (4.4-10.8)
[2019-01-03 07:07] LABS: INR 2.13 (0.9-1.15); Partial Thromboplastin Time 38.2 sec (23.64-32.05)
[2019-01-03 07:15] LABS: Calcium 8.2 mg/dL (8.5-10.1); Magnesium 1.9 mg/dL (1.6-2.6); Potassium 4.1 mmol/L (3.5-5.1)
[2019-01-03 07:17] LABS: BUN/Creatinine Ratio 13.4
[2019-01-03 09:00] VITALS: BP_SYST 105; BP_SYST 85; BP_DIAS 44; BP_DIAS 52
[2019-01-03] MEDS: PANTOPRAZOLE 40 MG TAB PO SCH (09:10)
--- NOTE | 2019-01-03 12:55 | NUR ---
PAGED DR. Alayna CRUZ FOR ORDERS FOR HOME O2 EVAL AND ABG . RETURNED CALL AND GAVE THE ORDERS.
[2019-01-03 13:00] VITALS: BP 96/52
--- NOTE | 2019-01-03 14:25 | NUR ---
DR. CHEN WAS IN TO SEE . AMBULATED PT IN HALLWAY WITH O2 SAT MONITORED AND IT RANGED FROM 88-92% ON ROOM AIR. LEFT NEW ORDERS.
--- NOTE | 2019-01-03 16:27 | NUR ---
Discharge planning per consult, patient has orders for a home safety evaluation and home 02. Referral sent to [facility], placed a follow up leelee, spoke with Phlebotomist Associate Gretchen and was advised she wasn't sure if they could get the oxygen ordered carried out today given the area but she would work on it. Placed a follow up call, spoke with Capri and was advised that Gretchen had eft for the day however she did not see the referral. Advised of time on the fax receipt She advised she did see the order. Addendum: 01/03/19 at 1650 by [email or web address] Capri advised that she will send the order to [facility] [phone] and it usually takes them up to 4 hours for delivery. She advised that she most likely would not be able to secure home health today but to call back tomorrow. Address confirmed with patient [place] her daughter[place] [id number] [place] [address], phone numbers were confirmed as listed on the face sheet. Nurse Amato was advised of dc plan and advised that patient is cleared to go once she receives the oxygen. Addendum: 01/03/19 at 1711 by [employer] [email or web address]) Taxi voucher was given to Nurse Lm as patient was requesting assistance home. Addendum: 01/04/19 at 1335 by SRINIVASAN SHAIKH SS Per care More rep, [facility] was the delegated and accepting home health for this patient; placed a follow up call to Tammy, spoke with Caro and confirmed acceptance.
[2019-01-03 17:00] VITALS: BP 103/60
[2019-01-03] MEDS ORDERED: WARFARIN SODIUM 2.5 MG TAB PO ONE (17:00)
[2019-01-03 17:18] VITALS: BP 103/60
--- NOTE | 2019-01-03 18:10 | NUR ---
PORTABLE O2 DELIVERED BY [facility] AT PT'S BEDSIDE. WILL DELIVER THE CANISTER IN PT'S DAUGHTER'S HOUSE.
--- NOTE | 2019-01-03 19:31 | NUR ---
Discharge instructions and prescriptions given as ordered. Encourage to follow up with PMD as instructed. All questions and concerns addressed. Patient verbalized understanding. Medication reconciliation form completed and copy given to patient. IV removed with catheter intact, pressure dressing applied. Telemetry unit returned to ICU. Patient taken to taxi via wheelchair with all personal belongings, accompanied by staff and family member. No distress noted at time of departure. Pt left with o2@2l/nc.
== END 2019-01-03 18:20 | disposition home or self-care (01) | DRG 871 ==
LOC: ER 05:43 → TELE 05:44 → DOU IN ICU 17:35 → TELE-EAST 12-28 18:27
PROVIDERS: ADMIT Internal Medicine; ATTEND Internal Medicine Geriatric Medicine
DX: A41.9 Sepsis, unspecified organism (principal); I26.09 Other pulmonary embolism with acute cor pulmonale; J96.01 Acute respiratory failure with hypoxia; N39.0 Urinary tract infection, site not specified; E44.0 Moderate protein-calorie malnutrition; I25.810 Atherosclerosis of coronary artery bypass graft(s) without angina pectoris; Z16.12 Extended spectrum beta lactamase (ESBL) resistance; I82.432 Acute embolism and thrombosis of left popliteal vein; I10 Essential (primary) hypertension; E86.0 Dehydration; J45.909 Unspecified asthma, uncomplicated; B96.20 Unspecified Escherichia coli [E. coli] as the cause of diseases classified elsewhere; F32.9 Major depressive disorder, single episode, unspecified; F41.9 Anxiety disorder, unspecified; Z79.01 Long term (current) use of anticoagulants; Z95.1 Presence of aortocoronary bypass graft; Z83.3 Family history of diabetes mellitus; Z86.19 Personal history of other infectious and parasitic diseases; Z79.4 Long term (current) use of insulin; Z82.49 Family history of ischemic heart disease and other diseases of the circulatory system; Z99.81 Dependence on supplemental oxygen; Z90.49 Acquired absence of other specified parts of digestive tract; Z88.5 Allergy status to narcotic agent; Z88.1 Allergy status to other antibiotic agents; Z91.041 Radiographic dye allergy status; Z91.040 Latex allergy status; Z68.25 Body mass index [BMI] 25.0-25.9, adult
CPT/HCPCS: 36415; 36600; 71045; 71275; 80048; 80053; 80061; 81001; 82550; 82805; 82962; 83036; 83605; 83735; 83880; 84484; 85025; 85610; 85730; 86703; 87040; 87081; 87804; 93005; 93306; 93970; 96365; 96368; 96372; 96375; 97116; 97530; 99291; G0378; J1335; J1815; J2185

== ENCOUNTER 2019-01-15 16:28 | Emergency (ER) | payer OTHER ==
[~2019-01-15] VITALS: Ht 172.7 cm; Wt 80.7 kg
[2019-01-15 17:11] LABS: Basophils # (auto) 0 uL; Basophils % (auto) 1.3 % (0.0-2.0); Eosinophils # (auto) 0.1 uL; Eosinophils % (auto) 4.5 % (0.0-7.0); Hemoglobin 12.1 g/dL (12.2-16.2); Lymphocytes # (auto) 1.4 uL; Lymphocytes % (auto) 50.5 % (10.0-50.0); Mean Corpuscular Hemoglobin 27.3 pg (28.0-32.0); Mean Corpuscular Hgb Conc. 32.7 g/dL (32.0-36.0); Mean Corpuscular Volume 83.6 fL (80.0-100.0); Monocytes # (auto) 0.3 uL; Monocytes % (auto) 10.8 % (0.0-12.0); Neutrophils # (auto) 0.9 uL; Neutrophils % (auto) 32.9 % (37.0-80.0); Platelet Count (auto) 158 10^3/uL (140-450); Red Blood Cells 4.43 10^6/uL (4.0-5.20); Red Cell Distribution Width 16.2 % (11.8-14.3); White Blood Cell 2.8 10^3/uL (4.4-10.8)
[2019-01-15 17:22] LABS: Partial Thromboplastin Time 46.7 sec (23.64-32.05)
[2019-01-15 17:23] LABS: Albumin 3.3 g/dL (3.4-5.0); Calcium 8.6 mg/dL (8.5-10.1); Potassium 3.7 mmol/L (3.5-5.1)
[2019-01-15 17:28] LABS: BUN/Creatinine Ratio 12.1; Bilirubin, Total 0.6 mg/dL (0.2-1.0); Total Protein 7.1 g/dL (6.4-8.2)
[2019-01-15 17:49] LABS: INR 4.43 (0.9-1.15)
[2019-01-15] MEDS ORDERED: SODIUM CHLORIDE 0.9% 1,000 ML IV ONE (20:00)
[2019-01-15 21:40] LABS: Urine Bacteria NONE SEEN /hpf (None Seen); Urine Blood 3+ /uL (Negative); Urine Mucus FEW (None Seen); Urine Specific Gravity 1.011 (1.001-1.035); Urine WBC 165 /hpf (0 - 5)
[2019-01-15] MEDS ORDERED: CLINDAMYCIN 300MG IV 50 ML IV ONE (22:45)
[2019-01-16] VITALS: BP 155/59
== END 2019-01-16 00:06 | disposition home or self-care (01) ==
LOC: ER 16:28
DX: T45.511A Poisoning by anticoagulants, accidental (unintentional), initial encounter (principal); N39.0 Urinary tract infection, site not specified; R93.89 Abnormal findings on diagnostic imaging of other specified body structures; I25.10 Atherosclerotic heart disease of native coronary artery without angina pectoris; E11.9 Type 2 diabetes mellitus without complications; I10 Essential (primary) hypertension; Z91.040 Latex allergy status; Z88.1 Allergy status to other antibiotic agents; Z88.5 Allergy status to narcotic agent; Z91.041 Radiographic dye allergy status; Y92.89 Other specified places as the place of occurrence of the external cause
CPT/HCPCS: 36415; 76856; 80053; 81001; 85025; 85610; 85730; 96365; 99284; J3490; J7030

== ENCOUNTER 2019-01-16 17:04 | Emergency (ER) | payer OTHER ==
[~2019-01-16] VITALS: Ht 172.7 cm; Wt 81.6 kg
[2019-01-16 17:42] LABS: Basophils # (auto) 0.1 uL; Basophils % (auto) 1.7 % (0.0-2.0); Eosinophils # (auto) 0.1 uL; Eosinophils % (auto) 3.3 % (0.0-7.0); Hematocrit 38.4 % (36.0-46.0); Hemoglobin 12.7 g/dL (12.2-16.2); Lymphocytes # (auto) 1.7 uL; Lymphocytes % (auto) 48.3 % (10.0-50.0); Mean Corpuscular Hemoglobin 27.5 pg (28.0-32.0); Mean Corpuscular Hgb Conc. 33.2 g/dL (32.0-36.0); Mean Corpuscular Volume 82.7 fL (80.0-100.0); Monocytes # (auto) 0.3 uL; Monocytes % (auto) 7.2 % (0.0-12.0); Neutrophils # (auto) 1.4 uL; Neutrophils % (auto) 39.5 % (37.0-80.0); Nucleated Red Blood Cells % 0.2 %; Platelet Count (auto) 170 10^3/uL (140-450); Red Blood Cells 4.64 10^6/uL (4.0-5.20); Red Cell Distribution Width 16.2 % (11.8-14.3); White Blood Cell 3.6 10^3/uL (4.4-10.8)
[2019-01-16 18:03] LABS: Albumin 3.6 g/dL (3.4-5.0); Anion Gap 6 (5-15); Aspartate Aminotransferase 29 U/L (15-37); BUN/Creatinine Ratio 13.6; Blood Urea Nitrogen 14 mg/dL (7-18); Calcium 8.6 mg/dL (8.5-10.1); Carbon Dioxide 29 mmol/L (21-32); Chloride 106 mmol/L (98-107); GFR African American 68 mL/min; GFR Non-African American 56 mL/min; Glucose 163 mg/dL (74-106); Magnesium 1.5 mg/dL (1.6-2.6); Potassium 3.2 mmol/L (3.5-5.1); Sodium 141 mmol/L (136-145)
[2019-01-16 18:08] LABS: Alanine Aminotransferase 38 U/L (13-56); Alkaline Phosphatase 134 U/L (45-117); Bilirubin, Total 0.8 mg/dL (0.2-1.0); Total Protein 7.8 g/dL (6.4-8.2)
[2019-01-16 18:32] LABS: Urine Bacteria MANY /hpf (None Seen); Urine Blood TRACE /uL (Negative); Urine Specific Gravity 1.017 (1.001-1.035); Urine WBC 587 /hpf (0 - 5)
[2019-01-16 19:43] LABS: INR 2.19 (0.9-1.15); Partial Thromboplastin Time 34.9 sec (23.64-32.05)
[2019-01-16] MEDS ORDERED: cloNIDine HCL 0.1 MG TAB PO ONE (19:45)
[2019-01-16 21:58] VITALS: BP 110/56
== END 2019-01-16 22:00 | disposition home or self-care (01) ==
LOC: ER 17:04
DX: R30.9 Painful micturition, unspecified (principal); I25.10 Atherosclerotic heart disease of native coronary artery without angina pectoris; E11.9 Type 2 diabetes mellitus without complications; I10 Essential (primary) hypertension; Z91.041 Radiographic dye allergy status; Z91.040 Latex allergy status; Z88.5 Allergy status to narcotic agent; Z88.8 Allergy status to other drugs, medicaments and biological substances
CPT/HCPCS: 36415; 80053; 81001; 83735; 84484; 85025; 85610; 85730

== ENCOUNTER 2019-03-16 19:06 | Emergency (ER) | payer OTHER ==
[~2019-03-16] VITALS: Ht 172.7 cm; Wt 72.2 kg
[2019-03-16 19:29] VITALS: BP 178/82
[2019-03-16 20:10] LABS: Basophils # (auto) 0 uL; Eosinophils # (auto) 0.1 uL; Hemoglobin 13.3 g/dL (12.2-16.2); Monocytes # (auto) 0.4 uL
[2019-03-16 20:11] LABS: Basophils % (auto) 0.8 % (0.0-2.0); Eosinophils % (auto) 2.1 % (0.0-7.0); Lymphocytes # (auto) 1.8 uL; Lymphocytes % (auto) 45.8 % (10.0-50.0); Mean Corpuscular Hemoglobin 26.5 pg (28.0-32.0); Mean Corpuscular Hgb Conc. 33.3 g/dL (32.0-36.0); Mean Corpuscular Volume 79.7 fL (80.0-100.0); Monocytes % (auto) 9.6 % (0.0-12.0); Neutrophils # (auto) 1.7 uL; Neutrophils % (auto) 41.7 % (37.0-80.0); Nucleated Red Blood Cells % 0.1 %; Platelet Count (auto) 156 10^3/uL (140-450); Red Blood Cells 5.02 10^6/uL (4.0-5.20); Red Cell Distribution Width 16.9 % (11.8-14.3)
[2019-03-16 20:25] LABS: Chloride 107 mmol/L (98-107); Potassium 3.7 mmol/L (3.5-5.1); Sodium 140 mmol/L (136-145)
[2019-03-16 20:28] LABS: INR 1.03 (0.9-1.15); Partial Thromboplastin Time 25.4 sec (23.64-32.05)
[2019-03-16 20:31] LABS: Alanine Aminotransferase 26 U/L (13-56); Albumin 3.4 g/dL (3.4-5.0); Alkaline Phosphatase 128 U/L (45-117); Anion Gap 6 (5-15); Aspartate Aminotransferase 27 U/L (15-37); BUN/Creatinine Ratio 14.8; Bilirubin, Total 0.2 mg/dL (0.2-1.0); Blood Urea Nitrogen 17 mg/dL (7-18); Calcium 8.7 mg/dL (8.5-10.1); Carbon Dioxide 27 mmol/L (21-32); Creatine Kinase IFCC 69 U/L (26-192); GFR African American 59 mL/min; GFR Non-African American 49 mL/min; Glucose 288 mg/dL (74-106); Magnesium 1.7 mg/dL (1.6-2.6); Total Protein 7.9 g/dL (6.4-8.2)
== END 2019-03-17 01:46 | disposition left against medical advice (07) ==
LOC: ER 19:06
DX: M79.10 Myalgia, unspecified site (principal); Z53.21 Procedure and treatment not carried out due to patient leaving prior to being seen by health care provider
CPT/HCPCS: 36415; 70450; 72125; 72131; 73030; 80053; 82550; 82962; 83735; 84484; 85025; 85610; 85730; 93005

== ENCOUNTER → 2019-06-19 | Emergency (ER) | payer OTHER ==
[~2019-06-19] VITALS: Ht 172.7 cm; Wt 68.0 kg
[~2019-06-19] MED LIST changes: +CIPROFLOXACIN 400MG/200ML 200 ML IV ONE; +POTASSIUM CHL 20 Meq TABLET PO ONE
[2019-06-19 17:52] LABS: Basophils # (auto) 0 10 ^3/uL (0-0.2); Eosinophils # (auto) 0.1 10 ^3/uL (0-0.8); Hemoglobin 12.3 g/dL (12.2-16.2); Monocytes # (auto) 0.4 10 ^3/uL (0-1.3)
[2019-06-19 17:53] LABS: Eosinophils % (auto) 2.3 % (0.0-7.0); Hematocrit 37.3 % (36.0-46.0); Lymphocytes # (auto) 1.8 10 ^3/uL (0.4-5.4); Lymphocytes % (auto) 36.6 % (10.0-50.0); Mean Corpuscular Hemoglobin 26.6 pg (28.0-32.0); Mean Corpuscular Volume 80.5 fL (80.0-100.0); Monocytes % (auto) 7.7 % (0.0-12.0); Neutrophils # (auto) 2.6 10 ^3/uL (1.6-8.6); Neutrophils % (auto) 52.4 % (37.0-80.0); Nucleated Red Blood Cells % 0.2 %; Platelet Count (auto) 157 10^3/uL (140-450); Red Blood Cells 4.64 10^6/uL (4.0-5.20); Red Cell Distribution Width 18.6 % (11.8-14.3); White Blood Cell 4.9 10^3/uL (4.4-10.8)
[2019-06-19 18:18] LABS: Albumin 3.4 g/dL (3.4-5.0); BUN/Creatinine Ratio 18.2; Calcium 8.7 mg/dL (8.5-10.1); Magnesium 1.8 mg/dL (1.6-2.6)
[2019-06-19 18:21] LABS: Bilirubin, Total 0.4 mg/dL (0.2-1.0); Total Protein 7.7 g/dL (6.4-8.2)
[2019-06-19 19:05] VITALS: BP 124/73
[2019-06-19 19:44] LABS: Urine Bacteria FEW /hpf (None Seen); Urine Blood Negative /uL (Negative); Urine Specific Gravity 1.003 (1.001-1.035); Urine WBC 28 /hpf (0 - 5)
== END | disposition home or self-care (01) ==
LOC: EDBD 17:11 → EDUNIT# 17:11 → ER 17:11
DX: E11.649 Type 2 diabetes mellitus with hypoglycemia without coma (principal); N39.0 Urinary tract infection, site not specified; I25.10 Atherosclerotic heart disease of native coronary artery without angina pectoris; I10 Essential (primary) hypertension; E78.5 Hyperlipidemia, unspecified; Z95.1 Presence of aortocoronary bypass graft; Z90.49 Acquired absence of other specified parts of digestive tract; Z79.4 Long term (current) use of insulin; Z79.899 Other long term (current) drug therapy; Z88.5 Allergy status to narcotic agent; Z91.040 Latex allergy status; Z88.8 Allergy status to other drugs, medicaments and biological substances
CPT/HCPCS: 36415; 71045; 80053; 81001; 82962; 83735; 85025; 93005; 96365; 99285; J0744

== ENCOUNTER → 2019-06-20 | Emergency (ER) | payer OTHER ==
[~2019-06-20] VITALS: Ht 172.7 cm; Wt 72.6 kg
[~2019-06-20] MED LIST changes: -CIPROFLOXACIN 400MG/200ML 200 ML IV ONE; -POTASSIUM CHL 20 Meq TABLET PO ONE
[2019-06-20 19:19] LABS: Basophils # (auto) 0.1 10 ^3/uL (0-0.2); Basophils % (auto) 1.2 % (0.0-2.0); Eosinophils # (auto) 0.1 10 ^3/uL (0-0.8); Eosinophils % (auto) 1.5 % (0.0-7.0); Hematocrit 38.7 % (36.0-46.0); Hemoglobin 12.8 g/dL (12.2-16.2); Lymphocytes # (auto) 1.4 10 ^3/uL (0.4-5.4); Lymphocytes % (auto) 28.3 % (10.0-50.0); Mean Corpuscular Hemoglobin 26.6 pg (28.0-32.0); Mean Corpuscular Hgb Conc. 32.9 g/dL (32.0-36.0); Mean Corpuscular Volume 80.9 fL (80.0-100.0); Monocytes # (auto) 0.4 10 ^3/uL (0-1.3); Neutrophils # (auto) 3.1 10 ^3/uL (1.6-8.6); Nucleated Red Blood Cells % 0.1 %; Platelet Count (auto) 162 10^3/uL (140-450); Red Blood Cells 4.79 10^6/uL (4.0-5.20); Red Cell Distribution Width 18.7 % (11.8-14.3)
[2019-06-20 19:38] LABS: Albumin 3.6 g/dL (3.4-5.0); BUN/Creatinine Ratio 20.4; Potassium 4.1 mmol/L (3.5-5.1)
[2019-06-20 19:41] LABS: Bilirubin, Total 0.4 mg/dL (0.2-1.0); Total Protein 7.8 g/dL (6.4-8.2)
[2019-06-20 21:00] VITALS: BP 135/56
[2019-06-20 21:10] LABS: Urine Bacteria MANY /hpf (None Seen); Urine Blood Negative /uL (Negative); Urine Specific Gravity 1.007 (1.001-1.035); Urine WBC 9 /hpf (0 - 5)
== END | disposition home or self-care (01) ==
LOC: EDUNIT# 18:23 → EDBD 18:23 → ER 18:26
DX: E11.649 Type 2 diabetes mellitus with hypoglycemia without coma (principal); E78.5 Hyperlipidemia, unspecified; I10 Essential (primary) hypertension; J45.909 Unspecified asthma, uncomplicated; Z90.49 Acquired absence of other specified parts of digestive tract; Z95.1 Presence of aortocoronary bypass graft; Z88.6 Allergy status to analgesic agent; Z91.041 Radiographic dye allergy status; Z91.040 Latex allergy status
CPT/HCPCS: 36415; 80053; 81001; 85025; 93005

== ENCOUNTER 2020-12-09 20:11 | Emergency (ER) | payer BC, OTHER ==
[~2020-12-09] VITALS: Ht 172.7 cm; Wt 83.5 kg
[~2020-12-09 20:11] MED LIST changes: +AMLO-489; -AMLO5TAB15; +DOCU100C10 PO; -DOCU100C8 PO
[2020-12-10 01:22] VITALS: BP 179/67
== END 2020-12-10 01:30 | disposition home or self-care (01) ==
LOC: ER 20:19
DX: S60.562A Insect bite (nonvenomous) of left hand, initial encounter (principal); S60.561A Insect bite (nonvenomous) of right hand, initial encounter; S80.862A Insect bite (nonvenomous), left lower leg, initial encounter; S80.861A Insect bite (nonvenomous), right lower leg, initial encounter; S30.861A Insect bite (nonvenomous) of abdominal wall, initial encounter; S30.860A Insect bite (nonvenomous) of lower back and pelvis, initial encounter; J45.909 Unspecified asthma, uncomplicated; I25.10 Atherosclerotic heart disease of native coronary artery without angina pectoris; E11.9 Type 2 diabetes mellitus without complications; E78.5 Hyperlipidemia, unspecified; I10 Essential (primary) hypertension; Z95.1 Presence of aortocoronary bypass graft; Z90.49 Acquired absence of other specified parts of digestive tract; Z79.4 Long term (current) use of insulin; Z79.899 Other long term (current) drug therapy; Z88.5 Allergy status to narcotic agent; Z88.8 Allergy status to other drugs, medicaments and biological substances; Z91.040 Latex allergy status; W57.XXXA Bitten or stung by nonvenomous insect and other nonvenomous arthropods, initial encounter; Y93.89 Activity, other specified; Y92.89 Other specified places as the place of occurrence of the external cause; Y99.8 Other external cause status

== ENCOUNTER 2022-02-05 16:35 | Emergency (ER) | payer BC, MEDICAID ==
[~2022-02-05] VITALS: Ht 172.7 cm; Wt 82.7 kg
[2022-02-05 22:50] VITALS: BP 142/52
== END 2022-02-05 23:10 | disposition home or self-care (01) ==
LOC: ER 16:35
DX: R51.9 Headache, unspecified (principal); I10 Essential (primary) hypertension; E11.9 Type 2 diabetes mellitus without complications; E78.5 Hyperlipidemia, unspecified; I25.10 Atherosclerotic heart disease of native coronary artery without angina pectoris; J45.909 Unspecified asthma, uncomplicated; Z90.49 Acquired absence of other specified parts of digestive tract; Z95.1 Presence of aortocoronary bypass graft
CPT/HCPCS: 70450

== ENCOUNTER 2023-07-29 18:33 | Emergency (ER) | payer BC, MEDICAID ==
[~2023-07-29] VITALS: Ht 172.7 cm; Wt 81.1 kg
[2023-07-29 18:33] VITALS: BP 152/69; PULSE 82; RESP 16; O2SAT 94
[~2023-07-29 18:33] MED LIST changes: -AMLO-489; +AMLO1TAB22; +DOCU-265 PO; -DOCU100C10 PO
== END 2023-07-29 23:02 | disposition left against medical advice (07) ==
LOC: ER 18:33
DX: M25.511 Pain in right shoulder (principal); Z53.21 Procedure and treatment not carried out due to patient leaving prior to being seen by health care provider

== ENCOUNTER 2023-09-01 12:05 | Emergency (ER) | payer BC, MEDICAID ==
[~2023-09-01] VITALS: Ht 172.7 cm; Wt 79.8 kg
[2023-09-01 12:21] VITALS: TEMP 98.2
[2023-09-01 12:27] VITALS: BP 183/69; PULSE 79; RESP 16; O2SAT 97
[2023-09-01] MEDS ORDERED: IBUP1TAB5 PO (13:53)
[2023-09-01] MEDS ORDERED: CEPH500C PO (13:53)
== END 2023-09-01 14:13 | disposition home or self-care (01) ==
LOC: ER 12:05
DX: L02.12 Furuncle of neck (principal); J45.909 Unspecified asthma, uncomplicated; I25.10 Atherosclerotic heart disease of native coronary artery without angina pectoris; E11.9 Type 2 diabetes mellitus without complications; E78.5 Hyperlipidemia, unspecified; I10 Essential (primary) hypertension; F41.9 Anxiety disorder, unspecified; F32.A Depression, unspecified; Z95.1 Presence of aortocoronary bypass graft; Z90.49 Acquired absence of other specified parts of digestive tract; Z88.8 Allergy status to other drugs, medicaments and biological substances; Z88.1 Allergy status to other antibiotic agents; Z88.5 Allergy status to narcotic agent; Z91.040 Latex allergy status

== ENCOUNTER 2024-04-07 19:00 | Emergency (ER) | payer OTHER, BC, MEDICAID ==
[~2024-04-07] VITALS: Ht 152.4 cm; Wt 77.3 kg
[~2024-04-07 19:00] MED LIST changes: +CEPH500C PO; +IBUP1TAB5 PO
--- NOTE | 2024-04-07 22:09 | ED.PDOC ---
Eye-HPI HPI Comments This is a 70-year-old female presents to the ED chief complaint left eye irritation x2 days. Patient reports itchiness, clear drainage, denies pain, or vision changes. Injury, fever or chills. Chief Complaint: Eye Problem Time Seen by MD: 19:35 Primary Care Provider: CLOVIS Reviewed Notes: Nurses Notes, Medications, Allergies Allergies: Coded Allergies: Codeine (Verified Allergy, Severe, 12/26/18) Cephalexin (Verified Allergy, Mild, 12/26/18) Latex (Verified Allergy, Mild, 12/26/18) Iodine (Verified Allergy, Unknown, 12/26/18) Home Meds Active Scripts Ibuprofen Micronized (Ibuprofen) 600 Mg Tab, 600 MG PO BID for 5 Days, #10 TAB 0 Refills Prov:NURIA DIAS NUTRITION COORDINATOR 09/01/23 Cephalexin Monohydrate (Cephalexin) 500 Mg Cap, 1 CAP PO QID for 5 Days, #20 CAP 0 Refills Prov:NURIA DIAS NUTRITION COORDINATOR 09/01/23 Docusate Sodium (Docusate Sodium) 100 Mg Cap, 100 MG PO BID, #60 CAP Prov:JAELYN ANG MD 01/04/18 Insulin Glargine (Lantus) 100 Unit/Ml Inj, 10 UNIT SC BID for 30 Days, INJ Prov:JAELYN ANG MD 01/04/18 Reported Medications Hydrocodone-Acetaminophen ([place] 5/325MG) 1 Tab Tb, 1 TAB PO QID, #90 TAB 01/03/18 Diphenhydramine Hcl (Benadryl Allergy) 25 Mg Cap, 50 MG PO BID, CAP 08/26/17 Amlodipine Besylate (Amlodipine Besylate) 5 Mg Tab, 5 DAILY 08/09/10 Information Source: Patient Mode of Arrival: Ambulatory Past Medical History PAST MEDICAL HISTORY: Anxiety, Asthma, CAD, Depression, DM, High Lipids, HTN, PE Surgical History: CABG, Cholecystectomy 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 DRIVING TEACHER History Family History Family History: Reviewed,noncontributory to illness, Family hx of DM, Family hx of heart horacio, Family hx of HTN Social History Smoker: Non-Smoker Alcohol: Denies ETOH Use Drugs: Denies Drug Use Lives In: Home Constitutional: denies: chills, diaphoresis, fatigue, fever, malaise, sweats, weakness, others EENTM: reports: eye pain, eye redness; denies: blurred vision, double vision, ear bleeding, ear discharge, ear drainage, ear pain, ear ringing, hearing loss, mouth pain, mouth swelling, nasal discharge, nose bleeding, nose congestion, nose pain, photophobia, tearing, throat pain, throat swelling, voice changes, others Respiratory: denies: cough, hemoptysis, orthopnea, SOB at rest, shortness of breath, SOB with excertion, stridor, wheezing, others Cardiovascular: denies: chest pain, dizzy spells, diaphoresis, Dyspnea on exertion, edema, irregular heart beat, left arm pain, lightheadedness, palpitations, PND, syncope, others Gastrointestinal: denies: abdomen distended, abdominal pain, blood streaked bowels, constipated, diarrhea, dysphagia, difficulty swallowing, hematemesis, melena, nausea, poor appetite, poor fluid intake, rectal bleeding, rectal pain, vomiting, others Genitourinary: denies: abnormal vagina bleeding, burning, dyspareunia, dysuria, flank pain, frequency, hematuria, incontinence, pain, , vagina discharge, urgency, others Neurological: denies: dizziness, fainting, headache, left sided numbness, left sided weakness, numbness, paresthesia, pre-existing deficit, right sided numbness, right sided weakness, seizure, speech problems, tingling, tremors, weakness, others Musculoskeletal: denies: back pain, gout, joint pain, joint swelling, muscle pain, muscle stiffness, neck pain, others Integumetry: denies: bruises, change in color, change in hair/nails, dryness, laceration, lesions, lumps, rash, wounds, others Allergic/Immunocompromised: denies: Difficulty Healing, Frequent Infections, Hives, Itching, others Hematologic/Lymphatic: denies: anemia, blood clots, easy bleeding, easy bruising, swollen glands, others Endocrine: denies: excessive hunger, excessive sweating, excessive thirst, excessive urination, flushing, intolerance to cold, intolerance to heat, unexplained weight gain, unexplained weight loss, others Psychiatric: denies: anxiety, bipolar disorder, depression, hopeless, panic disorder, schizophrenia, sleepless, suicidal, others Physical Exam General Appearance: No Apparent Distress, Normal HEENT: Pharynx Normal, TMs Normal, Other (Right eye lower lid erythemic with noted hordeolum with edema no noted drainage or head) Neck: Full Range of Motion, Non-Tender, Normal, Normal Inspection Respiratory: Chest Non-Tender, Lungs Clear, No Accessory Muscle Use, No Respiratory Distress, Normal Breath Sounds Cardiovascular: No Edema, No JVD, No Murmur, No Gallop, Normal Peripheral Pulses, Regular Rate/Rhythm Breast Exam: Deferred Gastrointestinal: No Organomegaly, Non Tender, No Pulsatile Mass, Normal Bowel Sounds, Soft Genitalia: Deferred Pelvic: Deferred Rectal: Deferred Extremities: No calf tenderness, Normal capillary refill, Normal inspection, Normal range of motion, Non-tender, No pedal edema Musculoskeletal : Apperance: Normal Neurologic: Alert, business line controller II-XII nml as Tested, No Motor Deficits, Normal Affect, Normal Mood, No Sensory Deficits Cerebellar Function: Normal Reflexes: Normal Skin: Dry, Normal Color, Warm Lymphatic: No Adenopathy Was a procedure done? Was a procedure done?: No EENT DIFF Eye: Chalazion, Conjunctivitis, Corneal Ulceration, Foreign Body-Conjunctiva, Foreign Body-Corneal, Foreign Body-Intraocular, Foreign Body-Lid, Periorbital Cellulits X-Ray, Labs, Meds, VS Vital Signs Date Time Temp Pulse Resp B/P (MAP) Pulse Ox O2 Delivery O2 Flow Rate FiO2 04/07/24 19:29 98.1 80 18 183/79 (113) 95 X-Ray, Labs, Meds, VS Comment Trial antibiotic drops and erythromycin. Advised to follow up with PCP in 2-3 days as necessary ER return precautions given patient indicated understanding agrees with discharge plan of care Time of 1ST Reevaluation: 22:31 Reevaluation 1ST: Improved Patient Education/Counseling: Diagnosis, Treatment, Prognosis, Need For Follow Up Family Education/Counseling: No Family Present Departure 1 Departure Time of Disposition: 22:32 Impression: Primary Impression: Internal hordeolum of right eye Qualified Codes: H00.022 - Hordeolum internum right lower eyelid Disposition: HOME / SELF CARE / HOMELESS Condition: Stable e-Prescriptions Moxifloxacin Hydrochloride (Moxifloxacin) 0.5 % Solo 1 DROP OP TID for 7 Days, #2 ML Instill 1 drop right eye 3 times a day x7 days Prov: YAIR BRAVO THIRD SHIFT LIEUTENANT 04/07/24 Erythromycin (Erythromycin) 5 Mg/Gm Oin 1 MG OP TID for 7 Days, #15 GRAMS Apply half-inch ribbon in right lower eyelid 3 times a day Prov: YAIR BRAVO 04/07/24 Discharged With: Spouse Critical Care Note Critical Care Time?: No Stability Stability form required: YAIR Walton Apr 07, 2024 22:09
[2024-04-07] MEDS ORDERED: ERY05OO OP (22:36)
[2024-04-07] MEDS ORDERED: MOXI0.5D9 OP (22:36)
[2024-04-07 22:48] VITALS: BP 189/112; PULSE 72; RESP 18; TEMP 98; O2SAT 98
[2024-04-07] MEDS: cloNIDine HCL 0.1 MG TAB PO ONE (23:12)
== END 2024-04-07 23:29 | disposition home or self-care (01) ==
LOC: ER 19:00
DX: H00.022 Hordeolum internum right lower eyelid (principal); J45.909 Unspecified asthma, uncomplicated; F41.9 Anxiety disorder, unspecified; I25.10 Atherosclerotic heart disease of native coronary artery without angina pectoris; F32.9 Major depressive disorder, single episode, unspecified; I10 Essential (primary) hypertension; E11.9 Type 2 diabetes mellitus without complications; Z90.49 Acquired absence of other specified parts of digestive tract; Z95.1 Presence of aortocoronary bypass graft; Z91.040 Latex allergy status; Z88.8 Allergy status to other drugs, medicaments and biological substances; Z88.5 Allergy status to narcotic agent; Z88.1 Allergy status to other antibiotic agents

== ENCOUNTER 2024-06-20 14:07 | Emergency (ER) | payer BC, MEDICAID ==
[~2024-06-20] VITALS: Ht 172.7 cm; Wt 78.3 kg
[2024-06-20 14:16] VITALS: BP 168/92; PULSE 91; RESP 16; TEMP 98.7; O2SAT 99
[2024-06-20] MEDS ORDERED: MUPI2CRE17 EX (16:04)
[2024-06-20] MEDS ORDERED: AUG875T PO (16:04)
--- NOTE | 2024-06-20 16:04 | ED.PDOC ---
Eye-HPI HPI Comments This is a 79-year-old with a history of type 1 diabetes who presents for concerns of an nasal infection for the last three days. Onset occurred after patient scratched her nose and believes it developed into an infection. Has not tried medications. Denies fevers chills drainage from the site Chief Complaint: Face pain Time Seen by MD: 14:24 Primary Care Provider: unknown Reviewed Notes: Nurses Notes, Medications, Allergies Allergies: Coded Allergies: Codeine (Verified Allergy, Severe, 12/26/18) Cephalexin (Verified Allergy, Mild, 12/26/18) Latex (Verified Allergy, Mild, 12/26/18) Iodine (Verified Allergy, Unknown, 12/26/18) Home Meds Active Scripts Ibuprofen Micronized (Ibuprofen) 600 Mg Tab, 600 MG PO BID for 5 Days, #10 TAB 0 Refills Prov:NURIA DIAS UNIT RECEPTIONIST 09/01/23 Cephalexin Monohydrate (Cephalexin) 500 Mg Cap, 1 CAP PO QID for 5 Days, #20 CAP 0 Refills Prov:NURIA DIAS NP 09/01/23 Docusate Sodium (Docusate Sodium) 100 Mg Cap, 100 MG PO BID, #60 CAP Prov:JAELYN ANG MD 01/04/18 Insulin Glargine (Lantus) 100 Unit/Ml Inj, 10 UNIT SC BID for 30 Days, INJ Prov:JAELYN ANG MD 01/04/18 Reported Medications Hydrocodone-Acetaminophen ([place] 5/325MG) 1 Tab Tb, 1 TAB PO QID, #90 TAB 01/03/18 Diphenhydramine Hcl (Benadryl Allergy) 25 Mg Cap, 50 MG PO BID, CAP 08/26/17 Amlodipine Besylate (Amlodipine Besylate) 5 Mg Tab, 5 DAILY 08/09/10 Information Source: Patient Mode of Arrival: Ambulatory Past Medical History PAST MEDICAL HISTORY: Anxiety, Asthma, CAD, Depression, DM, High Lipids, HTN, PE Surgical History: CABG, Cholecystectomy 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 EDGING MACHINE CATCHER History Family History Family History: Reviewed,noncontributory to illness, Family hx of DM, Family hx of heart horacio, Family hx of HTN Social History Smoker: Non-Smoker Alcohol: Denies ETOH Use Drugs: Denies Drug Use Lives In: Home All Other Systems: Reviewed and Negative (Per hpi) Physical Exam General Appearance: No Apparent Distress, Normal HEENT: Normal ENT Inspection, Pharynx Normal, TMs Normal Neck: Full Range of Motion, Non-Tender, Normal, Normal Inspection Respiratory: Chest Non-Tender, Lungs Clear, No Accessory Muscle Use, No Respiratory Distress, Normal Breath Sounds Cardiovascular: No Edema, No JVD, No Murmur, No Gallop, Normal Peripheral Pulses, Regular Rate/Rhythm Breast Exam: Deferred Gastrointestinal: No Organomegaly, Non Tender, No Pulsatile Mass, Normal Bowel Sounds, Soft Genitalia: Deferred Pelvic: Deferred Rectal: Deferred Extremities: No calf tenderness, Normal capillary refill, Normal inspection, Normal range of motion, Non-tender, No pedal edema Musculoskeletal : Apperance: Normal Neurologic: Alert, huc ob II-XII nml as Tested, No Motor Deficits, Normal Affect, Normal Mood, No Sensory Deficits Cerebellar Function: Normal Reflexes: Normal Skin: Dry, Normal Color, Warm Lymphatic: No Adenopathy Was a procedure done? Was a procedure done?: No Images 1 - mild swelling. no abscess. ttp EENT DIFF Eye: Other Nose: Other X-Ray, Labs, Meds, VS Vital Signs Date Time Temp Pulse Resp B/P (MAP) Pulse Ox O2 Delivery O2 Flow Rate FiO2 06/20/24 14:16 98.7 91 16 168/92 (117) 99 98.7 X-Ray, Labs, Meds, VS Comment 79-year-old was seen today for a possible infection. After ROS physical examination there is mild erythema. Based on show decision-making patient agreed to empiric treatment. Prescribed p.o. antibiotics for presentation of symptoms Complete course of antibiotic therapy even if symptoms improve or resolve. There should be no leftover antibiotics as this can lead to antibiotic resistant bacteria and even worse infection. Patient verbalized understanding. Potential side effects discussed with patient including abdominal pain, nausea, diarrhea. Recommended probiotics and return precautions given Persistent diarrhea Dehydration Blood in stool Ill-appearing Patient is stable for discharge at this time. External notes reviewed. Test results and diagnostic imaging interpreted. All diagnostic findings, discharge care, education and instructions provided Follow-up with PCP in 2 to 3 days Patient verbalized understanding and agreed to treatment plan Vital signs stable, afebrile, no acute distress noted Patient ambulatory with strong steady gait Advised to return precautions for any new or worsening symptoms, return to ER immediately for re-evaluation Patient is aware that the purpose of this visit was for an acute medical emergency requiring emergent stabilization. Chronic conditions, including malignancies have not been ruled out. Patient is instructed to follow up with PCP as directed and discharge instructions for continued care and workup. If unable to arrange follow-up, patient is to return to the emergency department for reassessment. Patient (parent or legal guardian if applicable) was given verbal and written discharge instructions and acknowledges understanding. Time of 1ST Reevaluation: 16:02 Reevaluation 1ST: Improved Patient Education/Counseling: Diagnosis, Treatment Family Education/Counseling: Diagnosis, Treatment Departure 1 Departure Time of Disposition: 16:03 Impression: Primary Impression: Soft tissue infection Disposition: HOME / SELF CARE / HOMELESS Condition: Stable e-Prescriptions Mupirocin Calcium (Topical) (MUPIROCIN) 2 % Cre 1 APPLIC EX BID for 7 Days, #15 GRAMS 0 Refills Prov: NURIA DIAS NP 06/20/24 Amoxicillin & Pot Clavulanate (AUGMENTIN TABLET) 875 Mg Tb 875 MG PO BID for 7 Days, #14 TAB 0 Refills Prov: NURIA DIAS UNIT RECEPTIONIST 06/20/24 Critical Care Note Critical Care Time?: No Stability Stability form required: No Heart Score Heart Score: Heart Score Response (Comments) Value History N/A 0 EKG N/A 0 Age N/A 0 Risk Factors N/A 0 Troponin N/A 0 Total 0 NURIA DIAS NP Jun 20, 2024 16:04
== END 2024-06-20 16:15 | disposition home or self-care (01) ==
LOC: ER 14:07
DX: L08.9 Local infection of the skin and subcutaneous tissue, unspecified (principal); J01.90 Acute sinusitis, unspecified; I10 Essential (primary) hypertension; E11.9 Type 2 diabetes mellitus without complications; I25.10 Atherosclerotic heart disease of native coronary artery without angina pectoris; J45.909 Unspecified asthma, uncomplicated; E78.5 Hyperlipidemia, unspecified; F41.9 Anxiety disorder, unspecified; F32.A Depression, unspecified; Z95.1 Presence of aortocoronary bypass graft; Z90.49 Acquired absence of other specified parts of digestive tract; Z88.1 Allergy status to other antibiotic agents; Z88.5 Allergy status to narcotic agent; Z88.8 Allergy status to other drugs, medicaments and biological substances